=== PATIENT | female | born 1955 | race Caucasian/White ===

== ENCOUNTER 2024-02-15 09:00 | Inpatient (IN) | payer OTHER ==
[2024-04-17 11:15] VITALS: BMI 28.1
[2024-04-18] MEDS: BUPIVACAINE HCL/PF 0.5% (5MG/ML) 10 ML VIAL IJ ONE
[2024-04-18] MEDS ORDERED: THROMBIN (BOVINE) 20,000 UNIT VIAL TP ONE (07:14)
[2024-04-18] MEDS ORDERED: ceFAZolin SODIUM 1 GM VIAL ONE (07:14)
[2024-04-18] MEDS ORDERED: BUPIVACAINE HCL/PF 0.5% (5MG/ML) 10 ML VIAL ONE ×2 (07:15→07:35)
[2024-04-18] MEDS ORDERED: PROPOFOL 40 ML ONE ×2 (07:53→10:48)
[2024-04-18] MEDS ORDERED: ALBUTEROL SO4 HFA INHALER IH ONE (07:53)
[2024-04-18] MEDS ORDERED: MIDAZOLAM HCL 2 MG/2 ML SINGLE DOSE VIAL ONE (07:53)
[2024-04-18] MEDS ORDERED: ACETAMINOPHEN INJECTION 100 ML ONE (07:56)
[2024-04-18] MEDS ORDERED: HYDROmorphone HCl 2 MG/ML VIAL ONE (08:01)
[2024-04-18] MEDS ORDERED: PROPOFOL 60 ML ONE ×2 (08:01→10:01)
[2024-04-18] MEDS ORDERED: KETAMINE HCL 200 MG/20 ML VIAL ONE (08:05)
[2024-04-18] MEDS ORDERED: MAGNESIUM SULF 50% (8.12 MEQ/2 ML-1 GM VIAL) ONE (08:05)
[2024-04-18] MEDS: ceFAZolin 2 GRAM PREMIX BAG IVPB ONE (09:45)
[2024-04-18] MEDS: ceFAZolin SODIUM 1 GM VIAL IVPB ONE ×2 (10:35)
[2024-04-18] MEDS ORDERED: PROPOFOL 20 ML ONE (11:46)
[2024-04-18] MEDS: LACTATED RINGERS SOLUTION 1,000 ML IV SCH (17:00)
[2024-04-18] MEDS: CEFAZOLIN 1 GM/D5W 1 GM/50 ML BAG IVPB SCH (18:07)
[2024-04-18] MEDS: SENNOSIDES 8.8 MG/5 ML SYRUP PO SCH (22:00)
[2024-04-18] MEDS: GABAPENTIN 300 MG CAPSULE PO SCH (22:00)
[2024-04-18] MEDS: oxyCODONE HCL 5 MG TABLET PO PRN ×2 (22:01→23:10)
[2024-04-18] MEDS: ACETAMINOPHEN 500 MG TABLET (FP) PO PRN (23:10)
[2024-04-19] MEDS: HYDROmorphone HCL CARPU-JECT 2 MG/1 ML DISP.SYRIN IVPB ONE (00:40)
[2024-04-19] MEDS: HYDROmorphone HCL CARPU-JECT 2 MG/1 ML DISP.SYRIN IVPB PRN (02:20)
[2024-04-19] MEDS: ACETAMINOPHEN 1000 MG/100 ML BAG IVPB ONE (07:49)
[2024-04-19] MEDS ORDERED: DULoxetine HCL 30 MG CAPSULE.DR PO SCH (10:00)
[2024-04-19] MEDS: ATORVASTATIN CA 10 MG TABLET (FP) PO SCH (10:31)
[2024-04-19] MEDS: LORazepam 2 MG/ML SDV VIAL IVPUSH PRN (10:32)
[2024-04-19 10:39] LABS: BASO % 0.2 % (0-2.0); EOS % 0.1 % (0-4.5); HEMATOCRIT 28.2 % (32.4-45.2); HEMOGLOBIN 9.3 GM/dL (10.7-15.3); LYMPH % 17.5 % (8-40); MCH 29.8 pg (25.7-33.7); MCHC 32.9 g/dl (32.0-36.0); MEAN CELL VOLUME 90.7 fl (80-96); MEAN PLT VOLUME 8.6 fl (7.5-11.1); MONO % 8.7 % (3.8-10.2); NEUT % 73.5 % (42.8-82.8); PLATELET COUNT 356 10^3/uL (134-434); RBC 3.11 M/mm3 (3.60-5.2); RDW 14.5 % (11.6-15.6); WHITE BLOOD COUNT 15.9 K/mm3 (4.0-10.0)
[2024-04-19 10:54] LABS: POTASSIUM 4.3 mmol/L (3.5-5.1)
[2024-04-19 11:00] LABS: ALBUMIN 3.4 g/dl (3.4-5.0); CALCIUM 8.8 mg/dL (8.5-10.1)
[2024-04-19 11:03] LABS: CREATININE 0.9 mg/dL (0.55-1.3)
[2024-04-19 11:05] LABS: BILIRUBIN,TOTAL 0.4 mg/dL (0.2-1); TOT PROT 5.9 g/dl (6.4-8.2)
[2024-04-19] MEDS: HYDROmorphone HCL CARPU-JECT 2 MG/1 ML DISP.SYRIN IVPUSH PRN (12:42)
[2024-04-19] MEDS: HEPARIN NA (PORCINE) 5,000 UNITS/ML 1ML VIAL SQ SCH (15:02)
[2024-04-20 08:43] LABS: BASO % 0.4 % (0-2.0); EOS % 0.9 % (0-4.5); HEMATOCRIT 24.7 % (32.4-45.2); LYMPH % 19.3 % (8-40); MCH 29.8 pg (25.7-33.7); MCHC 32.4 g/dl (32.0-36.0); MEAN CELL VOLUME 91.7 fl (80-96); MEAN PLT VOLUME 8.5 fl (7.5-11.1); MONO % 9.7 % (3.8-10.2); NEUT % 69.7 % (42.8-82.8); PLATELET COUNT 274 10^3/uL (134-434); RBC 2.69 M/mm3 (3.60-5.2); RDW 14.2 % (11.6-15.6); WHITE BLOOD COUNT 13.2 K/mm3 (4.0-10.0)
[2024-04-20 09:05] LABS: POTASSIUM 3.6 mmol/L (3.5-5.1)
[2024-04-20 09:10] LABS: BLOOD UREA NITROGEN 12.1 mg/dL (7-18); CALCIUM 8.1 mg/dL (8.5-10.1)
[2024-04-20 09:12] LABS: ALBUMIN 2.8 g/dl (3.4-5.0)
[2024-04-20 09:15] LABS: CREATININE 0.6 mg/dL (0.55-1.3)
[2024-04-20 09:16] LABS: BILIRUBIN,TOTAL 0.5 mg/dL (0.2-1); TOT PROT 5.4 g/dl (6.4-8.2)
[2024-04-20] MEDS ORDERED: LORazepam 2 MG/ML SDV VIAL IVPUSH PRN (09:21)
[2024-04-20 09:47] VITALS: RESP 20
[2024-04-20] MEDS: THIAMINE HCL 200 MG/2 ML VIAL IVPB SCH (09:49)
[2024-04-20] MEDS: FOLIC ACID 1 MG TABLET (FP) PO SCH (09:49)
[2024-04-20] MEDS: MULTIVITAMINS (DAILY MVI) TABLET (FP) PO SCH (09:49)
[2024-04-20 13:38] VITALS: BP 144/70; PULSE 100; TEMP 99
[2024-04-20] MEDS ORDERED: ACETAMINOPHEN 1000 MG/100 ML BAG IVPB ONE (14:15)
[2024-04-20] MEDS ORDERED: ATORVASTATIN CA 10 MG TABLET (FP) PO SCH (22:00)
== END 2024-04-20 14:30 | disposition left against medical advice (07) | DRG 517 ==
LOC: J2C 04-18 04:15 → J8W 04-18 17:04
PROVIDERS: ADMIT Neurological Surgery; ATTEND Internal Medicine
PROC: 01NB0ZZ Release Lumbar Nerve, Open Approach (ICD-10-PCS; principal; 2024-04-18 08:00)
DX: M48.061 Spinal stenosis, lumbar region without neurogenic claudication (principal); M54.16 Radiculopathy, lumbar region; M54.50 Low back pain, unspecified; E78.5 Hyperlipidemia, unspecified; F41.9 Anxiety disorder, unspecified; F10.20 Alcohol dependence, uncomplicated
CPT/HCPCS: 36415; 71045-TC-FY; 72110-TC-FY; 76000-TC-FY; 80053; 85025; 86850; 86900; 86901; 87040; 93005; 93010; 94010; 94760; 97116-GP; 97161-GP; J0131; J1644

== ENCOUNTER 2024-06-11 15:51 | Inpatient (IN) | payer OTHER, MEDICARE ==
[2024-06-11 16:05] VITALS: BMI 26.9
[2024-06-11] MEDS ORDERED: CLINDAMYCIN 600MG PREMIX IVPB 600 MG/50 ML BAG IVPB ONE (17:26)
[2024-06-11 17:32] LABS: ABSOLUTE IMMATURE GRANULOCYTES 0.02 x10^3/uL (0.0-0.031); BASOPHILS # 0.03 x10^3/uL (0.01-0.08); EOSINOPHIL % 0.6 % (0.7-5.8); EOSINOPHILS # 0.04 x10^3/uL (0.04-0.36); HEMATOCRIT 35.2 % (34.1-44.9); MCHC 31.3 g/dl (32.2-35.5); MEAN CELL VOLUME 83.4 fl (79.4-94.8); MEAN PLT VOLUME 10.7 fl (9.4-12.3); MONOCYTE # 0.43 x10^3/uL (0.24-0.86); MONOCYTE % 6.6 % (4.7-12.5); PLATELET COUNT 409 x10^3/uL (182-369); RDW 13.8 % (12.4-16.4)
[2024-06-11] MEDS: CLINDAMYCIN 600MG PREMIX IVPB 600 MG/50 ML BAG IVPB ONE (17:35)
[2024-06-11 17:39] LABS: INR 1.1 (0.83-1.09)
[2024-06-11 17:49] LABS: POTASSIUM 3.6 mmol/L (3.5-5.1)
[2024-06-11 17:51] LABS: BLOOD UREA NITROGEN 5.3 mg/dL (7-18); CALCIUM 9.5 mg/dL (8.5-10.1)
[2024-06-11 17:52] LABS: ALBUMIN 3.8 g/dl (3.4-5.0)
[2024-06-11 17:55] LABS: CREATININE 0.5 mg/dL (0.55-1.3)
[2024-06-11 17:56] LABS: BILIRUBIN,TOTAL 0.3 mg/dL (0.2-1)
[2024-06-11 18:47] LABS: HCV DIAGNOSTIC IN-HOUSE W/RFLX NON-REACTIVE (NONREACTIVE); HIV INTERPRETATION NEGATIVE (NEGATIVE)
[2024-06-11 19:09] LABS: EPI CELLS 2 /uL (0-25.1); HYALINE CASTS 6 /uL (0-3.1); URINE APPEARANCE CLOUDY; URINE BACTERIA 1754 /uL (0-1359); URINE BILIRUBIN NEGATIVE (NEGATIVE); URINE COLOR YELLOW; URINE GLUCOSE (UA) NEGATIVE (NEGATIVE); URINE KETONE 1+ (NEGATIVE); URINE LEUK ESTERASE 2+ (NEGATIVE); URINE NITRITE NEGATIVE (NEGATIVE); URINE PROTEIN NEGATIVE (NEGATIVE); URINE RBC 11 /uL (0-23.9); URINE UROBILINOGEN 0.2 mg/dL (0.2-1.0); URINE WBC 737 /uL (0-25.8)
[2024-06-11] MEDS ORDERED: oxyCODONE HCL 5 MG TABLET ONE (19:40)
[2024-06-11] MEDS ORDERED: DOCUSATE SODIUM 100 MG CAPSULE (FP) PO PRN (19:49)
[2024-06-11] MEDS: oxyCODONE HCL 5 MG TABLET PO ONE (19:51)
[2024-06-12] MEDS: oxyCODONE HCL 5 MG TABLET PO PRN (01:44)
[2024-06-12] MEDS: CLINDAMYCIN 600MG PREMIX IVPB 600 MG/50 ML BAG IVPB SCH (01:50)
[2024-06-12] MEDS: CEFTRIAXONE 1 G/50 ML PREMIX 50 ML IVPB SCH (02:46)
[2024-06-12] MEDS: ACETAMINOPHEN 1000 MG/100 ML BAG IVPB PRN (04:16)
[2024-06-12] MEDS ORDERED: SENNOSIDES 8.8 MG/5 ML SYRUP PO PRN (04:40)
[2024-06-12 08:20] LABS: ABSOLUTE IMMATURE GRANULOCYTES 0.02 x10^3/uL (0.0-0.031); BASOPHILS # 0.03 x10^3/uL (0.01-0.08); EOSINOPHIL % 2.3 % (0.7-5.8); EOSINOPHILS # 0.13 x10^3/uL (0.04-0.36); HEMOGLOBIN 9.6 g/dL (11.2-15.7); MEAN CELL VOLUME 83.6 fl (79.4-94.8); MEAN PLT VOLUME 10.9 fl (9.4-12.3); MONOCYTE # 0.63 x10^3/uL (0.24-0.86); MONOCYTE % 11.3 % (4.7-12.5); PLATELET COUNT 335 x10^3/uL (182-369); RDW 13.7 % (12.4-16.4)
[2024-06-12 08:40] LABS: POTASSIUM 3.1 mmol/L (3.5-5.1)
[2024-06-12 08:42] LABS: BLOOD UREA NITROGEN 6.9 mg/dL (7-18); CALCIUM 8.9 mg/dL (8.5-10.1); MAGNESIUM 1.9 mg/dL (1.8-2.4)
[2024-06-12 08:45] LABS: CREATININE 0.6 mg/dL (0.55-1.3)
[2024-06-12 08:46] LABS: PHOSPHOROUS 3.8 mg/dL (2.5-4.9)
[2024-06-12] MEDS: GABAPENTIN 300 MG CAPSULE PO SCH (09:07)
[2024-06-12] MEDS: FOLIC ACID 1 MG TABLET (FP) PO SCH (09:07)
[2024-06-12] MEDS: MULTIVITAMINS (DAILY MVI) TABLET (FP) PO SCH (09:07)
[2024-06-12] MEDS: DULoxetine HCL 30 MG CAPSULE.DR PO SCH (09:07)
[2024-06-12] MEDS: POTASSIUM CHLORIDE ORAL LIQUID 20 MEQ/15 ML PO SCH (11:47)
[2024-06-12] MEDS: FLUTICASONE PROP 0.05% 16 GM NASAL SPRAY NS PRN (11:48)
[2024-06-12] MEDS: BACLOFEN 10 MG TABLET (FP) PO PRN (11:48)
[2024-06-12] MEDS: PANTOPRAZOLE 40 MG TABLET PO SCH (11:48)
[2024-06-12] MEDS: HYDROmorphone HCL CARPU-JECT 2 MG/1 ML DISP.SYRIN IVPUSH ONE (21:15)
[2024-06-12] MEDS: MONTELUKAST NA 10 MG TABLET PO SCH (22:15)
[2024-06-12] MEDS: ATORVASTATIN CA 10 MG TABLET (FP) PO SCH (22:15)
[2024-06-13 08:35] LABS: HEMATOCRIT 32.2 % (34.1-44.9); HEMOGLOBIN 10.1 g/dL (11.2-15.7); MCHC 31.4 g/dl (32.2-35.5); MEAN CELL VOLUME 83.6 fl (79.4-94.8); MEAN PLT VOLUME 10.9 fl (9.4-12.3); PLATELET COUNT 338 x10^3/uL (182-369); RDW 13.7 % (12.4-16.4)
[2024-06-13 08:51] LABS: POTASSIUM 3.9 mmol/L (3.5-5.1)
[2024-06-13 09:12] LABS: BLOOD UREA NITROGEN 6.2 mg/dL (7-18); CALCIUM 9.1 mg/dL (8.5-10.1)
[2024-06-13 09:16] LABS: CREATININE 0.6 mg/dL (0.55-1.3)
[2024-06-13] MEDS ORDERED: LIDOCAINE HCL/PF 2% SDV 5ML VIAL ONE (11:19)
[2024-06-13] MEDS ORDERED: ONDANSETRON 4 MG/2 ML VIAL ONE (11:19)
[2024-06-13] MEDS ORDERED: PROPOFOL ONE (11:19)
[2024-06-13] MEDS ORDERED: DEXAMETHASONE SOD PHOSPHATE 4 MG/1 ML VIAL ONE (11:19)
[2024-06-13] MEDS ORDERED: MIDAZOLAM HCL 2 MG/2 ML SINGLE DOSE VIAL ONE (11:20)
[2024-06-13] MEDS ORDERED: KETAMINE HCL 200 MG/20 ML VIAL ONE (11:22)
[2024-06-13] MEDS ORDERED: SUCCINYLCHOLINE CHLORIDE 200 MG/10 ML SYRINGE ONE (11:28)
[2024-06-13] MEDS ORDERED: ceFAZolin SODIUM 1 GM VIAL ONE (11:47)
[2024-06-13] MEDS ORDERED: ONDANSETRON 4 MG/2 ML VIAL IVPUSH PRN ×2 (12:14→14:48)
[2024-06-13] MEDS ORDERED: cefTRIAXone SODIUM 1 GM VIAL ONE (12:45)
[2024-06-13] MEDS ORDERED: DOCUSATE SODIUM 100 MG CAPSULE (FP) PO PRN (14:48)
[2024-06-13] MEDS ORDERED: FLUTICASONE PROP 0.05% 16 GM NASAL SPRAY NS PRN (14:48)
[2024-06-13] MEDS: PILOCARPINE HCL 5 MG PO SCH (14:57)
[2024-06-13] MEDS ORDERED: HYDROmorphone HCL CARPU-JECT 2 MG/1 ML DISP.SYRIN ONE (17:02)
[2024-06-13] MEDS: HYDROmorphone HCl 2 MG/ML VIAL IVPUSH ONE (17:05)
[2024-06-13] MEDS ORDERED: HYDROmorphone *PCA* 10MG/50ML DISP.SYRIN ONE (17:43)
[2024-06-13] MEDS ORDERED: ACETAMINOPHEN INJECTION 100 ML ONE (17:44)
[2024-06-13] MEDS: LABETALOL HCL 20 MG/4 ML VIAL IVPUSH PRN (17:45)
[2024-06-13] MEDS: ACETAMINOPHEN 1000 MG/100 ML BAG IVPB ONE (17:45)
[2024-06-13] MEDS ORDERED: LABETALOL HCL 5 MG/1 ML (100MG/20 ML VIAL) ONE (17:48)
[2024-06-13] MEDS: HYDROmorphone *PCA* 10MG/50ML DISP.SYRIN PCA SCH (17:50)
[2024-06-13] MEDS: LACTATED RINGERS SOLUTION 1,000 ML IV SCH (18:10)
[2024-06-13] MEDS: CEFAZOLIN 2 GM/D5W 2 GM/50 ML ML IVPB SCH (20:12)
[2024-06-13] MEDS: BACLOFEN 10 MG TABLET (FP) PO PRN (21:36)
[2024-06-13] MEDS: MONTELUKAST NA 10 MG TABLET PO SCH (21:36)
[2024-06-13] MEDS: DULoxetine HCL 30 MG CAPSULE.DR PO SCH (21:36)
[2024-06-13] MEDS: GABAPENTIN 300 MG CAPSULE PO SCH (21:36)
[2024-06-13] MEDS: ATORVASTATIN CA 10 MG TABLET (FP) PO SCH (21:36)
[2024-06-13] MEDS ORDERED: PILOCARPINE HCL 5 MG PO SCH (22:00)
[2024-06-14] MEDS: PANTOPRAZOLE 40 MG TABLET PO SCH (10:48)
[2024-06-14] MEDS: MULTIVITAMINS (DAILY MVI) TABLET (FP) PO SCH (10:48)
[2024-06-14] MEDS: FOLIC ACID 1 MG TABLET (FP) PO SCH (10:48)
[2024-06-14] MEDS: oxyCODONE HCL 5 MG TABLET PO PRN (11:57)
[2024-06-14] MEDS: ACETAMINOPHEN 500 MG TABLET (FP) PO PRN (18:39)
[2024-06-15] MEDS: ENOXAPARIN NA (PORCINE) 40 MG/0.4 ML DISP.SYRIN SQ SCH (09:27)
[2024-06-15] MEDS: PIPERACILLIN/TAZOB 3.375 GM 50 ML IVPB SCH (18:07)
[2024-06-15] MEDS: SENNOSIDES 8.8 MG/5 ML SYRUP PO PRN (21:01)
[2024-06-16] MEDS: LISINOPRIL 10 MG TABLET PO SCH (10:33)
[2024-06-16 11:38] VITALS: RESP 18; TEMP 98.1
[2024-06-16 13:23] VITALS: BP 148/89; PULSE 92
== END 2024-06-16 16:20 | disposition home or self-care (01) | DRG 29 ==
LOC: JER 15:51 → JERBED 17:04 → J8W 23:48
PROVIDERS: ADMIT Internal Medicine; ATTEND Family Medicine
PROC: 0RG20A0 Fusion of 2 or more Cervical Vertebral Joints with Interbody Fusion Device, Anterior Approach, Anterior Column, Open Approach (ICD-10-PCS; 2024-06-13)
PROC: 0RG2070 Fusion of 2 or more Cervical Vertebral Joints with Autologous Tissue Substitute, Anterior Approach, Anterior Column, Open Approach (ICD-10-PCS; 2024-06-13)
PROC: 4A11X4G Monitoring of Peripheral Nervous Electrical Activity, Intraoperative, External Approach (ICD-10-PCS; 2024-06-13)
PROC: 0RB30ZZ Excision of Cervical Vertebral Disc, Open Approach (ICD-10-PCS; principal; 2024-06-13 11:45)
DX: G95.29 Other cord compression (principal); L03.113 Cellulitis of right upper limb; M96.0 Pseudarthrosis after fusion or arthrodesis; M48.02 Spinal stenosis, cervical region; M53.2X2 Spinal instabilities, cervical region; F41.9 Anxiety disorder, unspecified; E78.5 Hyperlipidemia, unspecified; F10.10 Alcohol abuse, uncomplicated
CPT/HCPCS: 36415; 70450-TC; 71045-TC-FY; 72040-TC; 72125-TC; 72141-TC; 76000-TC-FY; 80048; 80053; 81003; 83735; 84100; 85025; 85027; 85610; 85730; 86803; 86850; 86900; 86901; 87086; 87186; 87389; 93005; 93010; 94010; 94760; 97116-GP; 97161-GP; 99285-25; C1713; C1889; J0131; J0475